=== PATIENT | female | born 1970 | race Caucasian/White ===

== ENCOUNTER 2016-09-17 13:54 | Emergency (ER) | payer SELFPAY ==
[~2016-09-17] VITALS: Ht 162.6 cm; Wt 61.7 kg
[2016-09-17 14:20] VITALS: BP 146/81
--- NOTE | 2016-09-17 16:43 | NUR ---
PATIENT CALLED FROM [facility] FOR LAB DRAW NO ANSWER PATIENT IS LWBS.
== END 2016-09-17 16:43 | disposition left against medical advice (07) ==
LOC: MED 13:54
DX: R73.9 Hyperglycemia, unspecified (principal); Z53.21 Procedure and treatment not carried out due to patient leaving prior to being seen by health care provider
CPT/HCPCS: 81025; 99281